=== PATIENT | male | born 1965 | race Caucasian/White ===

== ENCOUNTER 2021-08-14 16:24 | Outpatient (CLI) | payer BC, SELFPAY ==
--- NOTE | ~2021-08-14 | XR_ITS ---
XR elbow RT min 3V DATE: 08/14/2021 16:49 INDICATION: Posterior elbow pain with redness and swelling for 4 days TECHNIQUE: 4 views COMPARISON: None FINDINGS: There is mild dorsal elbow soft tissue swelling suggesting olecranon bursitis. There is mild spurring of the coronoid process. No fracture or dislocation, periosteal reaction or bone destruction. No joint effusion. IMPRESSION: Dorsal soft tissue swelling suggesting olecranon bursitis Mild coronoid process spurring No fracture or dislocation or joint effusion Reviewed, dictated and finalized at location A. [employer]
[2021-08-14 16:40] LABS: Basophils Absolute Auto 0.06 K/mm3 (0.00-0.10); Basophils Percent Auto 0.5 % (0.0-1.0); Eosinophils Absolute Auto 0.05 K/mm3 (0.02-0.50); Eosinophils Percent Auto 0.4 % (1.0-6.0); Hematocrit 43.9 % (40.0-54.0); Hemoglobin 15.1 g/dL (14.0-18.0); Immature Granulocyte Absolute 0.06 K/mm3 (0.00-0.00); Immature Granulocyte Percent A 0.5 % (0.0-0.0); Lymphocytes Absolute Auto 1.83 K/mm3 (1.10-4.50); Lymphocytes Percent Auto 14.4 % (18.0-42.0); Mean Corpuscular HGB Conc 34.4 g/dL (32.0-36.0); Mean Corpuscular Hemoglobin 30.6 pg (27.0-31.0); Mean Corpuscular Volume 88.9 fL (78.0-102.0); Monocytes Absolute Auto 0.85 K/mm3 (0.10-0.90); Monocytes Percent Auto 6.7 % (2.0-11.0); Neutrophils Absolute Auto 9.9 K/mm3 (1.7-7.2); Neutrophils Percent Auto 77.5 % (50.0-70.0); Platelet Count Result 271 K/mm3 (150-420); Red Blood Count 4.94 M/mm3 (4.70-6.10); Red Cell Distribution Width 12.8 % (11.6-14.4); White Blood Count 12.7 K/mm3 (4.8-10.8)
[2021-08-14 17:13] LABS: Alanine Aminotransferase 44 U/L (16-63); Albumin Level 4.1 g/dL (3.4-5.0); Alkaline Phosphatase 88 U/L (46-116); Anion Gap 11 mmol/L (8-16); Aspartate Amino Transferase 19 U/L (15-37); Bilirubin,Total 0.5 mg/dL (0.00-1.00); Blood Urea Nitrogen 12 mg/dL (7-18); CRP 4.8 mg/dL (0.0-0.9); Calcium 9.1 mg/dL (8.5-10.1); Carbon Dioxide 27 mmol/L (21-32); Chloride 99 mmol/L (98-108); Estimated Glomerular Filt Rate > 60; Glucose 114 mg/dL (70-99); Osmolality Calculated 284 mOsm/kg (285-295); Potassium 3.9 mmol/L (3.5-5.1); Sodium 137 mmol/L (136-145); Total Protein 7.6 g/dL (6.4-8.2); Uric Acid 4.3 mg/dL (3.5-7.2)
== END 2021-08-14 16:25 | disposition home or self-care (01) ==
PROVIDERS: PCP Internal Medicine; Visit Provider Nurse Practitioner Family
DX: M25.521 Pain in right elbow (principal); M25.421 Effusion, right elbow
CPT/HCPCS: 36415; 73080; 80053; 84550; 85025; 86140

== ENCOUNTER 2021-11-07 12:09 | Emergency (ER) | payer OTHER, BC, SELFPAY ==
--- NOTE | ~2021-11-07 | XR_ITS ---
EXAMINATION: XR foot LT min 3V DATE: 11/07/2021 12:25 INDICATION: Lateral sided left foot pain TECHNIQUE: Dorsoplantar, two oblique and lateral views of the left foot were obtained. COMPARISON: None. FINDINGS: Alignment is normal. Subtle linear lucency extending across the lateral cortex at the proximal metaph yseal region of the fifth metatarsal proximally 1.5 cm in minimal distance from the proximal articula r surface. No other fractures identified. Joint spaces are normal. Mild soft tissue swelling lateral to the fifth metatarsal. IMPRESSION: 1. Nondisplaced proximal metaphyseal fracture of the left fifth metatarsal. Reviewed, dictated and finalized at location A.
[2021-11-07 12:10] VITALS: BP 158/93; PULSE 72; RESP 18; TEMP 36.8; O2SAT 100
--- NOTE | 2021-11-07 13:27 | ED.GENADULT ---
HPI - General Adult General Chief complaint: Extremity Injury, Lower Stated complaint: broken foot?? Time Seen by Provider: 11/07/21 12:15 Source: patient History of Present Illness HPI narrative: 56-year-old male presented the emergency department for evaluation of left foot pain. Patient states he was stepping off a curb and believe he miss stepped causing him to roll his ankle. Patient felt a pop on the left lateral aspect of his foot and has since had increased pain with weightbearing. Patient states at rest the pain is controlled. Patient denies any other pain or injury. Related Data Home Medications Medication Instructions Recorded Confirmed adalimumab [Humira(CF) Pen] mg SUBCUT 11/07/21 atorvastatin 11/07/21 cetirizine [Zyrtec] 10 mg PO DAILY 11/07/21 fluticasone propionate INTRANASAL 11/07/21 ipratropium bromide INTRANASAL 11/07/21 montelukast mg 11/07/21 Allergies Allergy/AdvReac Type Severity Reaction Status Date / Time latex Allergy Unknown RASH Verified 11/07/21 12:13 CONDOMS Review of Systems Review of Systems: CONSTITUTIONAL: Denies fever, chills, or sweats. EYES: Denies visual changes, redness, or discharge. ENT: Denies rhinorrhea, congestion, sore throat, or otalgia. CARDIOVASCULAR: Denies chest pain, palpitations, or edema. RESPIRATORY: Denies cough or dyspnea. GASTROINTESTINAL: Denies abdominal pain, nausea, vomiting, or diarrhea. GENITOURINARY: Denies dysuria or hematuria. SKIN: Denies rash or itching. MUSCULOSKELETAL: See HPI Exam Narrative: APPEARANCE: Well appearing, no pain, no distress, well-nourished. HEAD: normocephalic, atraumatic. EYES: PERRLA/EOMI, conjunctivae clear. RESPIRATORY: Airway patent, respirations nonlabored. Clear to auscultation bilaterally, no rales, rhonchi, wheezing. MUSCULOSKELETAL: Left lateral foot tenderness to palpation. No ecchymosis, no deformity, strong pulses. No ankle or proximal tib-fib tenderness. NEURO: Alert. Cranial nerves II through XII intact. Grossly intact SKIN: Warm, dry. Normal Color Course Course Emergency Course: Patient was updated the results of his x-ray. Patient was placed in a posterior short leg splint, provided crutches for nonweightbearing and encouraged to have close follow-up with orthopedics. Vital Signs Vital signs: Vital Signs Temperature 98.3 F 11/07/21 12:10 Pulse Rate 72 11/07/21 12:10 Respiratory Rate 18 11/07/21 12:10 Blood Pressure 158/93 H 11/07/21 12:10 Pulse Oximetry 100 11/07/21 12:10 Temperature 98.3 F 11/07/21 12:10 Pulse Rate 72 11/07/21 12:10 Respiratory Rate 18 11/07/21 12:10 Blood Pressure 158/93 H 11/07/21 12:10 Pulse Oximetry 100 11/07/21 12:10 Medical Decision Making Vital Signs Vital Signs: Vital Signs Temperature 98.3 F 11/07/21 12:10 Pulse Rate 72 11/07/21 12:10 Respiratory Rate 18 11/07/21 12:10 Blood Pressure 158/93 H 11/07/21 12:10 Pulse Oximetry 100 11/07/21 12:10 Temperature 98.3 F 11/07/21 12:10 Pulse Rate 72 11/07/21 12:10 Respiratory Rate 18 11/07/21 12:10 Blood Pressure 158/93 H 11/07/21 12:10 Pulse Oximetry 100 11/07/21 12:10 Imaging Data Radiologist's impression: Impressions Foot X-Ray 11/07/21 13:01 IMPRESSION: 1. Nondisplaced proximal metaphyseal fracture of the left fifth metatarsal. Discharge Plan Discharge Clinical Impression: Metatarsal fracture Patient Disposition: Home, Self-Care Condition: Stable Instructions: Antibiotic Form Additional Instructions: Splint care as directed. Tylenol and ibuprofen for pain control. Crutches for nonweightbearing. Have close follow-up with orthopedics. If you have any worsening symptoms or if you have any questions or concerns and please call or return to the emergency department. Prescriptions: No Action atorvastatin 20 mg tablet RF: 0 cetirizine [Zyrtec] 10 mg Tablet 10 mg PO DAILY RF: 0 montelu
== END 2021-11-07 14:19 | disposition home or self-care (01) ==
PROVIDERS: Emergency Provider Emergency Medicine; PCP Internal Medicine
DX: S92.355A Nondisplaced fracture of fifth metatarsal bone, left foot, initial encounter for closed fracture (principal); X50.9XXA Other and unspecified overexertion or strenuous movements or postures, initial encounter
CPT/HCPCS: 29515; 73630; 99284